=== PATIENT | male | born 1975 | race Caucasian/White ===

== ENCOUNTER 2018-06-19 10:18 | Inpatient (IN) ==
[2018-06-19] MEDS ORDERED: VANCOMYCIN CONSULT ACTIVE PRN ×2 (10:38→13:28)
[2018-06-19] MEDS ORDERED: VANCOMYCIN HCL 2,250 MG in SODIUM CHLORIDE 0.9% 500 ML IV ONE (10:38)
[2018-06-19 11:07] LABS: Basophils # (auto) 0.03 K/uL (0-0.2); Basophils % (auto) 0.1 %; Eosinophils # (auto) 0.14 K/uL (0-0.5); Eosinophils % (auto) 0.7 %; Hematocrit (blood only) 46.2 % (42-52); Hemoglobin 16.1 g/dL (14.0-18.0); Immature Granulocytes # (auto) 0.06 K/uL (0.00-0.02); Immature Granulocytes % (auto) 0.3 %; Lymphocytes # (auto) 1.58 K/uL (1.2-3.4); Lymphocytes % (auto) 7.9 %; Mean Corpuscular Hgb Conc 34.8 g/dL (32-36); Mean Corpuscular Volume 88.8 fL (80-100); Mean Platelet Volume 11.7 fL (7.4-10.4); Monocytes # (auto) 2.41 K/uL (0.11-0.59); Neutrophils # (auto) 15.81 K/uL (1.4-6.5); Platelet Count 265 K/uL (130-400); RDW Coefficient of Variation 12.8 % (11.5-14.5); White Blood Count 20.03 K/uL (4.8-10.8)
[2018-06-19 11:15] LABS: INR 1.1 (0.9-1.1); Partial Thromboplastin Ratio 1.4; Partial Thromboplastin Time 35.1 Seconds (21.0-31.0); Prothrombin Time 11.4 Seconds (9.0-12.0)
[2018-06-19 11:25] LABS: Albumin Level 3.8 gm/dl (3.4-5.0); BUN Creatinine Ratio 7.7 (10-20); Calcium 9.4 mg/dl (8.5-10.1); Creatinine Clr Calc Pharmacy 97.2 ml/min; Est GFR (African American) 82.8; Est GFR (Non-African American) 71.5
[2018-06-19 11:28] LABS: Albumin Globulin Ratio 0.8 (0.9-2); Bilirubin,Total 0.7 mg/dl (0.2-1); Globulin 4.8 gm/dl (2.5-4.0); Total Protein 8.6 gm/dl (6.4-8.2)
--- NOTE | 2018-06-19 11:30 | CT Scan Report ---
CT OF THE RIGHT FOREARM WITHOUT CONTRAST CLINICAL HISTORY: Right forearm pain and swelling. Infection. Evaluate for abscess. COMPARISON STUDY: No previous studies for comparison. TECHNIQUE: Axial images of the right forearm were obtained without IV contrast. Sagittal and coronal reconstructions were viewed. FINDINGS: No fracture or evidence of osteomyelitis is identified within the right radius or ulna. Ali gnment of the right wrist and elbow is anatomic. There is no radiopaque foreign body. Note is made of extensive subcutaneous edema which is partially imaged on this exam. This extends from at least the level of the distal humerus to the dorsal right hand. This is most pronounced dorsally. Evaluation fo r abscess is suboptimal on this unenhanced exam but no well-defined fluid collection is identified to suggest an abscess. There is no soft tissue gas. Skin thickening is most pronounced within the dorsa l mid right forearm. There may be fascial/intermuscular/intramuscular fluid within the dorsal aspect of the mid right forearm. IMPRESSION: 1. Skin thickening and extensive subcutaneous edema of the right forearm and dorsal aspect of the rig ht hand. This suggests an infectious process with extensive cellulitis. No well-defined fluid collect ion to suggest abscess. Suboptimal evaluation given lack of IV contrast. Possible fascial and intramu scular/intramuscular fluid within the dorsal aspect of the mid right forearm. 2. No radiopaque foreign body. No evidence for osteomyelitis. No soft tissue gas. Electronically signed by: Alfredo Schmidt M.D. 06/19/2018 11:28 AM
[2018-06-19] MEDS ORDERED: ACETAMINOPHEN 500 MG TAB PO STA (11:34)
[2018-06-19] MEDS ORDERED: SODIUM CHLORIDE 0.9% 1000ML 1,000 ML IV ONE (11:36)
--- NOTE | 2018-06-19 12:02 | Emergency Department Note ---
Entered by Samra Aquino acting as a scribe for Michoacano Lyon MD History of Present Illness General Chief complaint: Infection, Wound Stated complaint: R ARM INFECTION Source: patient History of Present Illness Provider complaint: right arm infection Onset (ago): week(s) (over the last week ) Location: upper extremity and right Maximum Pain Intensity: 9 Quality: + other (infection) Associated symptoms: + loss of appetite and + nausea/vomiting; no fever/chills The patient is a 43 year old male who presents to the Emergency Room with complaints of a right arm infection over the last week. He rates his pain at a 9 /10. He states that he got a tattoo on his right arm 6 weeks ago and states that it is infected now. The patient states that he has not been febrile. The patient reports that he vomited last night but states that he has not had much of an appetite over the last 2 days. The patient reports that he is not diabetic and states that he takes medication for hypertension. Home Medications Home Medications Medication Instructions Recorded Confirmed Type ceftriaxone 1 g IM QAM 06/19/18 06/19/18 History metoprolol tartrate 50 mg PO BID 06/19/18 06/19/18 History mirtazapine 30 mg PO HS 06/19/18 06/19/18 History sulfamethoxazole-trimethoprim 1 tab PO BID 06/19/18 06/19/18 History [Bactrim DS] topiramate 25 mg PO HS 06/19/18 06/19/18 History Allergies Allergy/AdvReac Type Severity Reaction Status Date / Time clindamycin Allergy Unknown Unknown Unverified 06/19/18 11:28 Past Med/Surg History Family History Other No pertinent family history Social History Feels Safe at Home: Yes Smoking Status: Current every day smoker Review of Systems See HPI for pertinent positives & negatives. and A total of 10 systems reviewed and were otherwise negative Physical Exam Vital Signs Vital Signs - 24 hr 06/19/18 10:19 06/19/18 10:21 06/19/18 10:36 Temperature 37.2 C Temperature Source Oral Oral Sepsis Recent Fever Within 48 Hours No Sepsis New/Unexplained Change in Mental Status No Sepsis Action Taken by Nursing No Action Required Pulse Rate 146 H Respiratory Rate 18 Blood Pressure 135/96 Blood Pressure Mean 109 Pulse Oximetry 98 96 Oxygen Delivery Method Room Air Room Air Constitutional: Vital signs reviewed. Eyes: Pupils are equal round reactive to light. Conjunctiva are noninjected. ENT: Pharynx is clear without erythema or exudate. Mucous membranes are moist. Neck supple without meningeal signs. Respiratory: Clear to auscultation bilaterally. Breath sounds are equal bilaterally. Cardiovascular: Tachycardic rate, regular rhythm. No rubs or gallops. GI: Soft, nondistended and nontender. Bowel sounds are present. Musculoskeletal: No peripheral edema. No lower extremity tenderness. Integumentary: Diffuse swelling of the right arm from the elbow down to his hand with significant erythema over the dorsum of the forearm at the proximal aspect of a large tattoo. He has full range of motion of the fingers, wrist, and elbow without evidence of joint infection. No axillary lymph adenopathy. Normal distal pulses. No evidence of compartment syndrome. Neurological: The patient is awake and alert. No focal deficits. Psychiatric: Normal affect. Course 1031: Past medical records reviewed. The patient was evaluated in room C3, and a complete history and physical examination were performed. 1139: I updated the patient. He verbalized agreement and understanding of the treatment plan. 1140: I discussed the patient's case with Dr. Dante Parsons who will evaluate the patient for further management. Consultations Consultation #1: Dr. Dante Parsons Time: 11:40 Administered Medications Vancomycin HCl 2,250 mg/ (Sodium Chloride) 545 mls @ 200 mls/hr IV NOW ONE Stop: 06/19/18 13:21 Last Admin: 06/19/18 11:33 Dose: 200 mls/hr Medical Decision Making Differential Diagnosis The patient is a 43 year old male who presents to the ED with a right arm infection. Differential diagnosis includes cellulitis, myelitis, compartment syndrome, staph, and bacteremia. Medical Records Attestation: I reviewed the patient's medical records. Home Medications Current Medication List: was personally reviewed by me Laboratory Data Attestation: I reviewed the patient's lab results. Result diagrams: 06/19/18 10:52 06/19/18 10:52 Lab Results 0106/19/18 06/19/18 Range/Units 10:49 10:52 10:52 WBC 20.03 H (4.8-10.8) K/uL RBC 5.20 (4.7-6.1) M/uL Hgb 16.1 (14.0-18.0) g/dL Hct 46.2 (42-52) % MCV 88.8 (80-100) fL MCH 31.0 (25-34) pg MCHC 34.8 (32-36) g/dL RDW Std Deviation 41.0 (36.4-46.3) fL RDW Coeff of Cindy 12.8 (11.5-14.5) % Plt Count 265 (130-400) K/uL MPV 11.7 H (7.4-10.4) fL Immature Gran % (Auto) 0.3 % Neut % (Auto) 79.0 % Lymph % (Auto) 7.9 % [place] % (Auto) 12.0 % Eos % (Auto) 0.7 % Baso % (Auto) 0.1 % Immature Gran # (Auto) 0.06 H (0.00-0.02) K/uL Neut # (Auto) 15.81 H (1.4-6.5) K/uL Lymph # (Auto) 1.58 (1.2-3.4) K/uL [place] # (Auto) 2.41 H (0.11-0.59) K/uL Eos # (Auto) 0.14 (0-0.5) K/uL Baso # (Auto) 0.03 (0-0.2) K/uL PT (9.0-12.0) Seconds INR (0.9-1.1) APTT (21.0-31.0) Seconds PTT Ratio Sodium 133 L (136-145) mmol/L Potassium 4.0 (3.5-5.1) mmol/L Chloride 100 (98-107) mmol/L Carbon Dioxide 22 (21-32) mmol/L Anion Gap 11.0 (3-11) BUN 10 (7-18) mg/dl Creatinine 1.23 (0.6-1.4) mg/dl Est Cr Clr Drug Dosing 97.2 ml/min Est GFR ( Amer) 82.8 Est GFR (Non-Af Amer) 71.5 BUN/Creatinine Ratio 7.7 L (10-20) Glucose 100 H (70-99) mg/dl Lactate 1.3 (0.4-2.0) mmol/L Calcium 9.4 (8.5-10.1) mg/dl Total Bilirubin 0.7 (0.2-1) mg/dl AST 32 (15-37) U/L ALT 49 (12-78) U/L Alkaline Phosphatase 119 H (45-117) U/L Total Protein 8.6 H (6.4-8.2) gm/dl Albumin 3.8 (3.4-5.0) gm/dl Globulin 4.8 H (2.5-4.0) gm/dl Albumin/Globulin Ratio 0.8 L (0.9-2) 06/19/18 Range/Units 10:52 WBC (4.8-10.8) K/uL RBC (4.7-6.1) M/uL Hgb (14.0-18.0) g/dL Hct (42-52) % MCV (80-100) fL MCH (25-34) pg MCHC (32-36) g/dL RDW Std Deviation (36.4-46.3) fL RDW Coeff of Cindy (11.5-14.5) % Plt Count (130-400) K/uL MPV (7.4-10.4) fL Immature Gran % (Auto) % Neut % (Auto) % Lymph % (Auto) % [place] % (Auto) % Eos % (Auto) % Baso % (Auto) % Immature Gran # (Auto) (0.00-0.02) K/uL Neut # (Auto) (1.4-6.5) K/uL Lymph # (Auto) (1.2-3.4) K/uL [place] # (Auto) (0.11-0.59) K/uL Eos # (Auto) (0-0.5) K/uL Baso # (Auto) (0-0.2) K/uL PT 11.4 (9.0-12.0) Seconds INR 1.1 (0.9-1.1) APTT 35.1 H (21.0-31.0) Seconds PTT Ratio 1.4 Sodium (136-145) mmol/L Potassium (3.5-5.1) mmol/L Chloride (98-107) mmol/L Carbon Dioxide (21-32) mmol/L Anion Gap (3-11) BUN (7-18) mg/dl Creatinine (0.6-1.4) mg/dl Est Cr Clr Drug Dosing ml/min Est GFR ( Amer) Est GFR (Non-Af Amer) BUN/Creatinine Ratio (10-20) Glucose (70-99) mg/dl Lactate (0.4-2.0) mmol/L Calcium (8.5-10.1) mg/dl Total Bilirubin (0.2-1) mg/dl AST (15-37) U/L ALT (12-78) U/L Alkaline Phosphatase (45-117) U/L Total Protein (6.4-8.2) gm/dl Albumin (3.4-5.0) gm/dl Globulin (2.5-4.0) gm/dl Albumin/Globulin Ratio (0.9-2) Imaging Data Radiologist's Impression: Radiology results as stated below per my review and the radiologist's interpretation: CT OF THE RIGHT FOREARM WITHOUT CONTRAST CLINICAL HISTORY: Right forearm pain and swelling. Infection. Evaluate for abscess. COMPARISON STUDY: No previous studies for comparison. TECHNIQUE: Axial images of the right forearm were obtained without IV contrast. Sagittal and coronal reconstructions were viewed. FINDINGS: No fracture or evidence of osteomyelitis is identified within the right radius or ulna. Alignment of the right wrist and elbow is anatomic. There is no radiopaque foreign body. Note is made of extensive subcutaneous edema which is partially imaged on this exam. This extends from at least the level of the distal humerus to the dorsal right hand. This is most pronounced dorsally. Evaluation for abscess is suboptimal on this unenhanced exam but no well- defined fluid collection is identified to suggest an abscess. There is no soft tissue gas. Skin thickening is most pronounced within the dorsal mid right forearm. There may be fascial/intermuscular/intramuscular fluid within the dorsal aspect of the mid right forearm. IMPRESSION: 1. Skin thickening and extensive subcutaneous edema of the right forearm and dorsal aspect of the right hand. This suggests an infectious process with extensive cellulitis. No well-defined fluid collection to suggest abscess. Suboptimal evaluation given lack of IV contrast. Possible fascial and intramuscular/intramuscular fluid within the dorsal aspect of the mid right forearm. 2. No radiopaque foreign body. No evidence for osteomyelitis. No soft tissue gas. Electronically signed by: Alfredo Schmidt M.D. 06/19/2018 11:28 AM Blood Pressure Blood Pressure Findings: Elevated blood pressure Blood Pressure Disposition: Referred to patients primary care provider MDM Narrative I did perform a limited focused review of portions of the patient's old chart on the electronic medical record. The patient has had no prior visits. I did evaluate the patient as noted above. The patient is presenting with an infection to his right arm. He does have extensive cellulitis to the right arm without signs of compartment syndrome or necrotizing fasciitis. There is no signs of tenosynovitis. He has had no fever at home but he is quite tachycardic here. He does state that he is a history of tachycardia and is on Lopressor for this. He did vomit yesterday and has had no appetite today. IV access was established. The patient was placed on a continuous equipment monitor phototypesetting. He was given a liter normal saline IV. I also treated him with vancomycin IV after blood cultures were obtained. I did order and review the patient's blood work as noted in the electronic medical record. His white blood cell count is over 20. I did order a CT of the right forearm. I did review the images myself as well as the radiology report as described above. There is no abscess or fluid collection. I did discuss the test results with patient. I did treat him with Tylenol. I did recommend hospitalization and discussed case with the hospitalist and family preservation caseworker. Impression & Plan Sepsis, Cellulitis of arm, right Discharge Plan Visit Data Chief Complaint: Infection, Wound Stated Complaint: R ARM INFECTION ED Provider: Michoacano Lyon Discharge Problem: Sepsis, Cellulitis of arm, right Patient Disposition: Being Evaluated by Hospitalist Forms Stand Alone Forms: My [facility] [employer] Prescriptions Prescriptions: No Action topiramate 25 mg Tablet 25 mg PO HS RF: 0 sulfamethoxazole-trimethoprim [Bactrim DS] 800-160 mg Tablet 1 tab PO BID RF: 0 ceftriaxone 1 gram Recon Soln 1 g IM QAM RF: 0 mirtazapine 30 mg Tablet 30 mg PO HS RF: 0 metoprolol tartrate 50 mg Tablet 50 mg PO BID RF: 0 Referrals Referrals: Kayleigh AYALA [Primary Care Provider] - The scribe's documentation has been prepared under my direction and personally reviewed by me in its entirety. I confirm that the note above accurately reflects all work, treatment, procedures, and medical decision making performed by me.
--- NOTE | 2018-06-19 12:02 | History & Physical Report ---
Date of Service June 19, 2018 Assessment & Plan (1) Cellulitis of arm, right: Patient given vancomycin in the ER this will be continued with the vancomycin pharmacy consult Patient does not have sepsis although this might be put in the chart by emergency room physicians as tachycardia is based on a pre-existing condition he has no lactic acidosis he has no fever he has a white blood cell count elevation (2) Tachycardia: States he had a diagnosis of tachycardia for years he takes metoprolol for this he is tachycardic upon presentation to the ER (3) Migraine: Patient takes Topamax as prevention for his migraines (4) Depression: Patient takes mirtazapine 30 at bedtime History of Present Illness Primary Care Provider: JAMIE Victor Patient had presented to put in in the last few weeks. He developed redness swelling and tenderness to the superior aspect of it on his mid forearm he now has tenderness to his hand and swelling to his hand with erythema to his hand and forearm. He has no axillary lymphadenopathy. He said no other complaints or problems he has no neuropathy or or weakness he has good capillary refill to his hand Allergies Allergy/AdvReac Type Severity Reaction Status Date / Time clindamycin Allergy Unknown Unknown Unverified 06/19/18 11:28 Home Medications Home Medications Medication Instructions Recorded Confirmed Type ceftriaxone 1 g IM QAM 06/19/18 06/19/18 History metoprolol tartrate 50 mg PO BID 06/19/18 06/19/18 History mirtazapine 30 mg PO HS 06/19/18 06/19/18 History sulfamethoxazole-trimethoprim 1 tab PO BID 06/19/18 06/19/18 History [Bactrim DS] topiramate 25 mg PO HS 06/19/18 06/19/18 History Past Med/Surg History Medical History HTN (hypertension) (Chronic) Depression Migraine Tachycardia Family History Other No pertinent family history Social History Feels Safe at Home: Yes Smoking Status: Current every day smoker Review of Systems ROS: well nourished well developed. No double vision blurry vision No problems with speech or swallowing No palpitations, chest pain or pressure No Wheezing or breathing issues No abdominal pain nausea vomiting diarrhea changes in appetite or weight No burning urine urine frequency or changes in color Patient is plaints of pain to his arm and hands with swelling to his arm and hands on the right No unusual bruising or bleeding No focused back pain or numbness or loss of strength No changes in memory or confusion Physical Exam 2 Vital Signs (Past 24 Hours): Last Vital Signs Temp 37.2 C 06/19/18 10:21 Pulse 146 H 06/19/18 10:21 Resp 18 06/19/18 10:21 BP 135/96 06/19/18 10:21 Pulse Ox 96 06/19/18 10:36 The patient appeared well nourished and normally developed. He is in moderate distress Vital signs as documented. He has tachycardia but he states that his history Head exam is unremarkable. No scleral icterus or corneal arcus noted Neck is without jugular venous distension, thyromegaly, or lymphademopathy Lungs are clear to auscultation and percussion. Cardiac exam reveals Rhythm is regular. He is tachycardic first and second heart sounds normal. No murmurs, rubs or gallops. Abdominal exam reveals normal bowel sounds, no masses, no organomegaly Extremities he has fairly significant swelling and erythema to his distal right arm and hand. He is an area where the blister has unroofed at the apex of his tattoo there is no expressible pus or fluctuance seen there is no free air seen on x-rays Neurologic exam is A&Ox3, no focal deficits, strength is equal bilateral he has no numbness to his hands Skin is warm Dry exception of the infected site with multiple tattoos he says he is never had a tattoo infection before Results & Data Diagnostic Findings Right forearm x-ray 1. Skin thickening and extensive subcutaneous edema of the right forearm and dorsal aspect of the right hand. This suggests an infectious process with extensive cellulitis. No well-defined fluid collection to suggest abscess. Suboptimal evaluation given lack of IV contrast. Possible fascial and intramuscular/intramuscular fluid within the dorsal aspect of the mid right forearm. 2. No radiopaque foreign body. No evidence for osteomyelitis. No soft tissue gas.
[2018-06-19] MEDS ORDERED: ONDANSETRON INJ 2 MG/ML 2 ML VIAL IV PRN (12:51)
[2018-06-19] MEDS ORDERED: ACETAMINOPHEN 325 MG TAB PO PRN (12:51)
[2018-06-19] MEDS ORDERED: KETOROLAC 30 MG/ML VIAL ONE (13:30)
--- NOTE | 2018-06-19 14:36 | Pharmacy Report ---
Pharmacy Abx Initial Consult - Date of Service June 19, 2018 - Pharmacy Dosing Scope Date of Consult: 06/19/18 Consultation requested by: Dr. Mendoza Pharmacy is consulted to initiate Vancomycin IV dosing therapy, order appropriate labs and adjust drug dose/frequency. - Subjective The patient is a 43 year old M admitted on 06/19/18 11:58. - Objective Height: 5 ft 11 in Weight: 109 kg (BMI 33.5) Vital Signs (Past 12hrs): Vital Signs Temp Pulse Pulse Resp BP BP Pulse Ox 06/19/18 12:55 37.3 C 119 H 18 139/89 99 06/19/18 12:19 115 H 18 140/94 94 06/19/18 10:36 96 06/19/18 10:21 37.2 C 146 H 18 135/96 98 Lab Results (24hrs): Laboratory Tests (24 Hours) 06/19/18 06/19/18 10:52 10:52 WBC 20.03 H Neut # (Auto) 15.81 H Creatinine 1.23 Est Cr Clr Drug Dosing 97.2 Micro Results: 06/19/18 10:52 Blood Culture - Pending Blood 06/19/18 10:49 Blood Culture - Pending Blood - Risk Factors for Resistance * Antimicrobial use within the last 90 days : Rocephin IM/Bactrim DS - Assessment & Plan Assessment 43 year old M developed right arm redness, swelling and tenderness to the superior aspeect of it on his mid forearm. Now has tenderness in his hand and swelling with erythema to his hand and forearm. CT of right forearm: Skin thickening and extensive subcutaneous edema of the right forearm and dorsal aspect of the right hand. This suggests an infectious process with extensive cellulitis. Plan Vancomcyin for treatment of cellulitis Vancomycin IV * Estimated PK Parameters: Vd 0.61 L/kg, Keith 0.085 hr-1, t1/2 8.2 hr * Loading dose: 2250 mg (20 mg/kg) * Maintenance dose: 1500 mg IV (13.8 mg/kg) every 10 hours * Goal trough level for cellulitis : 10 to 15 mcg/mL * Trough level ordered for 06/21/18 @1230 * Will place 06/21/18 1300 dose on hold to assess level prior to dose being given since there is potential of accumulation. Pharmacy will continue to follow and will adjust dose/frequency as necessary. Thank you.
[2018-06-19] MEDS: OXYCODONE HCL IR 5 MG TAB (IMMEDIATE RELEASE) PO PRN ×2 (14:48→20:59)
[2018-06-19] MEDS: KETOROLAC 30 MG/ML VIAL IV PRN (19:26)
[2018-06-19] MEDS ORDERED: INFLUENZA VIRUS QUAD VACCINE 0.5 ML SYR IM ONE (20:00)
[2018-06-19] MEDS ORDERED: INFLUENZA ADMINISTRATION CHARGE ONE (20:00)
[2018-06-19] MEDS: METOPROLOL TARTRATE 50 MG TAB PO SCH (20:56)
[2018-06-19] MEDS: MIRTAZAPINE TAB 15 MG TAB PO SCH (20:56)
[2018-06-19] MEDS: TOPIRAMATE 25 MG TAB PO SCH (20:59)
[2018-06-19] MEDS: VANCOMYCIN HCL 1,500 MG in SODIUM CHLORIDE 0.9% 500 ML IV SCH (21:00)
[2018-06-20] MEDS: KETOROLAC 30 MG/ML VIAL IV PRN ×4 (02:10→22:04)
[2018-06-20] MEDS: OXYCODONE HCL IR 5 MG TAB (IMMEDIATE RELEASE) PO PRN ×4 (03:25→23:56)
[2018-06-20] MEDS: CALCIUM CARBONATE 500 MG CHEWABLE TAB PO PRN (05:06)
[2018-06-20 06:09] LABS: Hematocrit (blood only) 40.3 % (42-52); Hemoglobin 13.7 g/dL (14.0-18.0); Mean Corpuscular Volume 89.4 fL (80-100); Mean Platelet Volume 11.6 fL (7.4-10.4); Platelet Count 249 K/uL (130-400); RDW Coefficient of Variation 12.8 % (11.5-14.5); RDW Standard Deviation 41.7 fL (36.4-46.3); Red Blood Count 4.51 M/uL (4.7-6.1); White Blood Count 12.52 K/uL (4.8-10.8)
[2018-06-20] MEDS: VANCOMYCIN HCL 1,500 MG in SODIUM CHLORIDE 0.9% 500 ML IV SCH ×2 (06:16→17:09)
[2018-06-20 06:42] LABS: BUN Creatinine Ratio 12.7 (10-20); Calcium 8.6 mg/dl (8.5-10.1); Creatinine Clr Calc Pharmacy 111.8 ml/min; Est GFR (Non-African American) 84.6; Potassium 4.1 mmol/L (3.5-5.1)
[2018-06-20] MEDS: METOPROLOL TARTRATE 50 MG TAB PO SCH ×2 (08:23→21:06)
[2018-06-20] MEDS: ENOXAPARIN INJ 40 MG/0.4 ML SYR SQ SCH (08:23)
--- NOTE | 2018-06-20 10:10 | Family Medicine Progress Note ---
Date of Service June 20, 2018 Assessment & Plan (1) Cellulitis of arm, right: (1) Cellulitis of arm, right: Continue vanco. Swelling/redness better per patient. await culture. Patient does not have sepsis although this might be put in the chart by emergency room physicians as tachycardia is based on a pre-existing condition he has no lactic acidosis he has no fever he has a white blood cell count elevation (2) HTN/Tachycardia: Continue metoprolol (3) Migraine: continue Topamax (4) Depression: Cotninue Mirtazapine 30 at bedtime FEN - Regular diet, Bowel regimen Lovenox. Subjective feels the redness and swelling is slightly better. denies fever. last bm 2 days ago Respiratory: no dyspnea Cardiovascular: no chest pain Physical Exam 2 Vital Signs (Past 24 Hours): Last Vital Signs Temp 37.1 C 06/20/18 08:11 Pulse 78 06/20/18 08:11 Resp 18 06/20/18 08:11 BP 118/75 06/20/18 08:11 Pulse Ox 95 06/20/18 08:11 Constitutional: WD/WN, vitals as above Respiratory: normal respiratory effort, lungs clear to auscultation Cardiovascular: RRR, no murmur, no edema Skin: Right forearm dorsal swelling and redness with two 2 mm open area with purulent drainage overlying the tattoo.
[2018-06-20] MEDS: POLYETHYLENE (MIRALAX) 17 GM PACK PO PRN (12:54)
[2018-06-20] MEDS: NICOTINE 14 MG/24 HR PATCH TD SCH (18:31)
[2018-06-20] MEDS: MIRTAZAPINE TAB 15 MG TAB PO SCH (21:04)
[2018-06-20] MEDS: TOPIRAMATE 25 MG TAB PO SCH (21:05)
[2018-06-21] MEDS: VANCOMYCIN HCL 1,500 MG in SODIUM CHLORIDE 0.9% 500 ML IV SCH ×3 (04:09→23:21)
[2018-06-21 06:45] LABS: Hematocrit (blood only) 41.7 % (42-52); Hemoglobin 14.2 g/dL (14.0-18.0); Mean Corpuscular Hgb Conc 34.1 g/dL (32-36); Mean Corpuscular Volume 89.9 fL (80-100); Mean Platelet Volume 11.5 fL (7.4-10.4); Platelet Count 261 K/uL (130-400); RDW Coefficient of Variation 12.7 % (11.5-14.5); RDW Standard Deviation 41.5 fL (36.4-46.3); Red Blood Count 4.64 M/uL (4.7-6.1); White Blood Count 10.18 K/uL (4.8-10.8)
[2018-06-21 07:19] LABS: BUN Creatinine Ratio 12.9 (10-20); Calcium 8.6 mg/dl (8.5-10.1); Creatinine Clr Calc Pharmacy 116.1 ml/min; Est GFR (African American) 102.6; Est GFR (Non-African American) 88.6; Potassium 4.5 mmol/L (3.5-5.1)
[2018-06-21] MEDS: KETOROLAC 30 MG/ML VIAL IV PRN ×3 (08:06→21:46)
[2018-06-21] MEDS: METOPROLOL TARTRATE 50 MG TAB PO SCH ×2 (08:18→21:46)
[2018-06-21] MEDS: NICOTINE 14 MG/24 HR PATCH TD SCH (08:21)
[2018-06-21] MEDS: ENOXAPARIN INJ 40 MG/0.4 ML SYR SQ SCH (08:21)
[2018-06-21] MEDS: MoRPHine SULFATE 4 MG/ML 1 ML CARP\\VIAL IV PRN ×3 (10:19→23:21)
[2018-06-21] MEDS: OXYCODONE HCL IR 5 MG TAB (IMMEDIATE RELEASE) PO PRN ×2 (11:13→17:21)
[2018-06-21] MEDS ORDERED: VANCOMYCIN TROUGH ONE (12:30)
--- NOTE | 2018-06-21 13:07 | Family Medicine Progress Note ---
Date of Service June 21, 2018 Assessment & Plan (1) Cellulitis of arm, right: (1) Cellulitis of arm, right: Continue vanco. blood culture negative. wound culture never done- get swab today. check forearm ultrasound to r/o underlying abscess. pain uncontrolled with toradol - IV morphine. (2) HTN/Tachycardia: Continue metoprolol (3) Migraine: continue Topamax (4) Depression: Cotninue Mirtazapine 30 at bedtime (5) h/o narcotic dependence Follow for narcotic overuse. FEN - Regular diet, Bowel regimen Lovenox. Subjective no change in redness and swelling no fever no chest pain, shortness of breath pain uncontrolled with toradol. taking oxycodone as well. Physical Exam 2 Vital Signs (Past 24 Hours): Last Vital Signs Temp 36.8 C 06/21/18 07:47 Pulse 83 06/21/18 07:47 Resp 18 06/21/18 07:47 BP 124/83 06/21/18 07:47 Pulse Ox 96 06/21/18 07:47 Constitutional: WD/WN, vitals as above Respiratory: normal respiratory effort, lungs clear to auscultation Cardiovascular: RRR, no murmur, no edema Skin: right arm redness/swelling the same.
--- NOTE | 2018-06-21 13:34 | Ultrasound Report ---
US extremity nonvascular CLINICAL HISTORY: 43 years-old Male presenting with right forearm cellulitis, r/o abscess. TECHNIQUE: Real-time grayscale ultrasound imaging of the right forearm was performed for a focused ev aluation at the site of clinical concern. Color and spectral Doppler ultrasound imaging was also perf ormed. COMPARISON: CT from 06/19/2018. FINDINGS: Extensive skin and subcutaneous fat thickening with dilated lymphatics. Traversing vasculature patent with normal venous waveforms in the superficial veins of the forearm. Limited to the venous wall thi ckening may be present. Normal compressibility of the vein. No focal fluid collection. Normal subjace nt musculature. IMPRESSION: 1. No evidence of abscess or superficial venous thrombosis. Findings most suggestive of cellulitis. Electronically signed by: Bharath Winchester M.D. 06/21/2018 1:33 PM
--- NOTE | 2018-06-21 14:06 | Pharmacy Report ---
Pharmacy Abx Dose Short Note - Date of Service June 21, 2018 - Assessment & Plan Assessment * Mr Regan is a 43 year old M receiving Vancomycin for treatment of R arm cellulitis * Patient got a tattoo on that arm ~6 weeks ago. * Blood cultures are negative to date. Wound culture to be collected. * Day #3 of antimicrobial therapy. * Trough level was obtained today, prior to the 5th maintenance dose, which should be screening representative of steady-state. This level was therapeutic. Plan Vancomycin * Trough level of 15.5 mcg/mL is therapeutic * Continue dose of Vanc 1500 mg IV every 10 hours * Goal trough level for cellulitis: ~15 mcg/mL * Will evaluate another level in a few days if patient remains on vancomycin. Pharmacy will continue to follow and will adjust dose/frequency as necessary. Thank you.
[2018-06-21] MEDS: MIRTAZAPINE TAB 15 MG TAB PO SCH (21:46)
[2018-06-21] MEDS: TOPIRAMATE 25 MG TAB PO SCH (21:46)
[2018-06-22] MEDS: OXYCODONE HCL IR 5 MG TAB (IMMEDIATE RELEASE) PO PRN ×4 (01:40→21:12)
[2018-06-22] MEDS: METOPROLOL TARTRATE 50 MG TAB PO SCH ×2 (08:07→21:11)
[2018-06-22] MEDS: VANCOMYCIN HCL 1,500 MG in SODIUM CHLORIDE 0.9% 500 ML IV SCH ×2 (08:08→19:04)
[2018-06-22] MEDS: NICOTINE 14 MG/24 HR PATCH TD SCH (08:08)
[2018-06-22] MEDS: ENOXAPARIN INJ 40 MG/0.4 ML SYR SQ SCH (08:08)
[2018-06-22] MEDS: KETOROLAC 30 MG/ML VIAL IV PRN ×2 (09:35→16:07)
[2018-06-22] MEDS: MoRPHine SULFATE 4 MG/ML 1 ML CARP\\VIAL IV PRN ×2 (11:45→18:15)
--- NOTE | 2018-06-22 14:49 | Family Medicine Progress Note ---
Date of Service June 22, 2018 Assessment & Plan (1) Cellulitis of arm, right: (1) Cellulitis of arm, right: Continue vanco. blood culture negative. wound culture growing gram + cocci. forearm ultrasound with no underlying abscess. anticipate d/c in am once final cultures are back. (2) HTN/Tachycardia: Continue metoprolol (3) Migraine: continue Topamax (4) Depression: Cotninue Mirtazapine 30 at bedtime (5) h/o narcotic dependence Follow for narcotic overuse. FEN - Regular diet, Bowel regimen Lovenox. Subjective redness and swelling better today but thickness in the surrounding area still + no fever no chest pain, shortness of breath pain controlled with oxycodone Physical Exam 2 Vital Signs (Past 24 Hours): Last Vital Signs Temp 36.9 C 06/22/18 07:21 Pulse 87 06/22/18 07:21 Resp 20 06/22/18 07:21 BP 104/64 06/22/18 07:21 Pulse Ox 95 06/22/18 07:21 Constitutional: WD/WN, vitals as above Respiratory: normal respiratory effort, lungs clear to auscultation Cardiovascular: RRR, no murmur, no edema Skin: right forearm dorsum - ulcer same. surrounding redness and swelling better that yesterday but induration+
[2018-06-22] MEDS: POLYETHYLENE (MIRALAX) 17 GM PACK PO PRN (18:15)
[2018-06-22] MEDS: TOPIRAMATE 25 MG TAB PO SCH (21:11)
[2018-06-22] MEDS: MIRTAZAPINE TAB 15 MG TAB PO SCH (21:11)
[2018-06-23] MEDS: CALCIUM CARBONATE 500 MG CHEWABLE TAB PO PRN (00:47)
[2018-06-23] MEDS: VANCOMYCIN HCL 1,500 MG in SODIUM CHLORIDE 0.9% 500 ML IV SCH (05:05)
[2018-06-23] MEDS: OXYCODONE HCL IR 5 MG TAB (IMMEDIATE RELEASE) PO PRN ×2 (05:09→12:09)
[2018-06-23] MEDS: NICOTINE 14 MG/24 HR PATCH TD SCH (08:00)
[2018-06-23] MEDS: ENOXAPARIN INJ 40 MG/0.4 ML SYR SQ SCH ×2 (08:00→08:07)
[2018-06-23] MEDS: METOPROLOL TARTRATE 50 MG TAB PO SCH (08:01)
--- NOTE | 2018-06-23 09:12 | Discharge Summary ---
Date of Service June 23, 2018 Admission HPI Per Admitting Provider Patient had presented to put in in the last few weeks. He developed redness swelling and tenderness to the superior aspect of it on his mid forearm he now has tenderness to his hand and swelling to his hand with erythema to his hand and forearm. He has no axillary lymphadenopathy. He said no other complaints or problems he has no neuropathy or or weakness he has good capillary refill to his hand Principal Diagnosis Right Forearm Cellulitis Discharge Exam Constitutional WD/WN, vitals as above Respiratory normal respiratory effort, lungs clear to auscultation Cardiovascular RRR, no murmur, no edema Skin right forearm dorsum - swelling and redness much improved. drainage from the open area decreased. still with some surrounding induration. Discharge Data Allergies Allergy/AdvReac Type Severity Reaction Status Date / Time clindamycin Allergy Unknown Unknown Unverified 06/19/18 11:28 Consultations 06/19/18 11:34 ED Decision to Admit Stat 06/19/18 12:51 Consult Case Management - Discharge Planning Routine Ordered Studies 06/19/18 10:36 CT forearm RT wo con Stat 06/21/18 09:02 US extremity nonvascular Routine Hospital Course (1) Cellulitis of arm, right: (1) Cellulitis of arm, right: Kept on IV vanco. blood culture negative. wound culture was growing gram + cocci at the time of discharge - one colony - likely staph - per microbiology tech. final results pending at the time of discharge. cellulitis much improved. Home on continued bactrim for 4 more days. Did have forearm ultrasound - showed no underlying abscess. (2) HTN/Tachycardia: Continued metoprolol (3) Migraine: continued Topamax (4) Depression: Cotninued Mirtazapine 30 at bedtime (5) h/o narcotic dependence FEN - Regular diet, Received Lovenox for DVT proph Total Time Total Time Spent Total Time Spent (In Minutes): 35 Discharge Plan Discharge Items [facility]position: [facility] Reason For Visit: CELLULITIS Discharge Diagnosis: Right arm cellulitis Discharge Goals: Improve disease control Activity: Resume your previous activity Non-emergency contact: Primary Care Provider Call non-emergency contact if: you have any medication questions Diet: Regular Addtl Provider Instructions: Follow up with physician at correctional facility Continue Bactrim DS for 4 more days twice a day to finish the course of antibiotic Your wound culture is growing few staph aureus. Final sensitivity was pending at the time of discharge. Prescriptions: Continue topiramate 25 mg Tablet 25 mg PO HS RF: 0 sulfamethoxazole-trimethoprim [Bactrim DS] 800-160 mg Tablet 1 tab PO BID RF: 0 mirtazapine 30 mg Tablet 30 mg PO HS RF: 0 metoprolol tartrate 50 mg Tablet 50 mg PO BID RF: 0 Discontinued ceftriaxone 1 gram Recon Soln 1 g IM QAM RF: 0 Stand-Alone Forms: [facility] Discharge Orders: Discharge Order (Routine); Ordered 06/23/18 Ordered By: June Reyes Admission Data Admit Date/Time: 06/19/18 11:58 Attending Provider: June Reyes Admit Provider: Michoacano Mendoza Primary Care Provider: Kayleigh AYALA Other Providers: Michoacano Mendoza Service: Medical
[2018-06-23] MEDS ORDERED: VANCOMYCIN TROUGH ONE (14:30)
== END 2018-06-23 19:56 | DRG 603 ==
LOC: ED 10:18 → 2W 11:58 → SUATTDRO 11:58 → 2W 12:40